=== PATIENT | female | born 1995 | race Caucasian/White ===

== ENCOUNTER 2024-04-05 14:38 | Emergency (ER) | payer OTHER ==
--- OUTSIDE RECORDS SUMMARY | 2024-04-05 14:41 | XMS REPORT | Continuity of Care Document ---
Author Name Unknown Address [address] [facility] [address]. [address] [place], [place] [id number] [place] [address] thconnect Address [address] [facility] [address]. [address] [place] [address] Care Team Providers Care Cruise Counselor Name Role Phone Unavailable Unavailable Unavailable Encounters Start Date/Time End Date/Time Encounter Type Admission Type Attending Clinicians Care Facility Care Department Encounter ID Source 2024-03-21 15:27:50 2024-03-21 15:27:50 Outpatient SFA SFA 1027 Cesar Wheeler 2024-03-16 08:25:08 2024-03-16 08:25:08 Outpatient SFA SFA 1022 Cesar Wheeler 2024-02-16 09:05:50 2024-02-16 09:05:50 Outpatient SFA SFA 0923 Cesar Wheeler 2024-02-15 15:06:41 2024-02-15 15:06:41 Outpatient SFA SFA 0922 Cesar Wheeler 2024-01-20 09:09:22 2024-01-20 09:09:22 Outpatient SFA SFA 0827 Cesar Wheeler 2024-01-19 08:30:39 2024-01-19 08:30:39 Outpatient SFA SFA 0826 Cesar Wheeler 2024-01-12 13:41:47 2024-01-12 13:41:47 Outpatient SFA SFA [id number] 0819 Cesar Wheeler 2024-01-05 10:58:32 2024-01-05 10:58:32 Outpatient SFA SFA 0812 Cesar Wheeler Results Test Description Test Time Test Comments Results Result Co mments Source VITAMIN D, 25 [id number] 03:48:48* Test Item Value Reference Range Interpretation Comme [facility] VITAMIN D, 25 OH (test code = 4958) 21 NG/ML SEE BELOW L NOTE: 25-HYDR OXYVITAMIN D ASSAY INCLUDES 25-HYDROXYVITAMIN D2 AND D3. INTERPRETIVE RANGES PEDIATRIC (<17 YEARS) . . . . . . . . . . . NG/ML 20-100ADULT: INSUFFICIENT . . . . . . . . . . . . . . NG/ML <20 SUBOPTIMAL . . . . . . . . . . . . . . . NG/ML 20-29 OPTIMAL . . . . . . . . . . . . . . . . . NG/ML 30-100 TSH, THIRD [id number] 03:47:06* Test Item Value Reference Range Interpretation Comme [facility] TSH, THIRD GENERATION (test code = 2821) 1.080 UIU/ML 0.400-4.100 COMPREHENSIVE METABOLIC [id number] 03:45:24* Test Item Value Reference Range Interpretation Comme [facility] GLUCOSE (test code = 2216) 84 MG/DL 70-99 BUN (test code = 2207) 12 MG/DL 6-20 CREATININE (test code = 2213) 0.79 MG/DL 0.60-1.30 eGFR (2020 CKD-EPI) (test code = 54774) 104 ML/MIN/1.73 >60 CALC BUN/CREAT (test code = 223) 15 RATIO 6-28 SODIUM (test code = 223) 134 MEQ/L 133-146 POTASSIUM (test code = 2228) 4.2 MEQ/L 3.5-5.4 CHLORIDE (test code = 2215) 98 MEQ/L 95-107 CARBON DIOXIDE (test code = 2206) 23 MEQ/L 19-31 CALCIUM (test code = 2209) 9.8 MG/DL 8.5-10.5 PROTEIN, TOTAL (test code = 2228) 7.0 G/DL 6.1-8.3 ALBUMIN (test code = 2200) 4.3 G/DL 3.5-5.2 CALC GLOBULIN (test code = 2240) 2.7 G/DL 1.9-3.7 CALC A/G RATIO (test code = 223) 1.6 RATIO 1.0-2.6 BILIRUBIN, TOTAL (test code = 2207) 0.5 MG/DL <=1.2 ALKALINE PHOSPHATASE (test code = 2204) 89 U/L 40-112 AST (test code = 2218) 21 U/L 9-40 ALT (test code = 2219) 20 U/L 5-40 LIPID [id number] 03:45:24* Test Item Value Reference Range Interpretation Comme nts CHOLESTEROL (test code = 2210) 260 MG/DL <200 H TRIGLYCERIDES (test code = 2232) 181 MG/DL <150 H HDL CHOLESTEROL (test code = 2220) 35 MG/DL >39 L CALC LDL CHOL (test code = 2237) 190 MG/DL <100 H NOTE: CALCULATED LDL IS BASED ON ANGELA-SRIVASTAVA METHOD WHICHINCLUDES ADJUSTABLE TRIGLYCERIDE:VLDL CHOLESTEROL RATIO.THIS FACTOR VARIES BY MEASURED TRIGLYCERIDE AND NON-HDLCHOLESTEROL CONCENTRATIONS WITH INCREASED CALCULATED LDL SEENIN HIGHER TRIGLYCERIDE OR LOWER NON-HDL SPECIMENS. FOR MOREINFORMATION, SEE CLIENT ANNOUNCEMENT AT [email or web address] RISK RATIO LDL/HDL (test code = 2238) 5.43 RATIO <3.22 H UNLESS OTHERW ISE INDICATED, ALL TESTING PERFORMED AT [facility] [address] [place] [address] CLAMP JIG ASSEMBLER: SANTHOSH ARREOLA M.D. CLIA NUMBER [id number] [facility] [place]. [id number] CBC W/AUTO DIFF WITH [id number] 02:51:33* Test Item Value Reference Range Interpretation Comme nts WBC (test code = 1001) 6.4 K/UL 3.5-11.0 RBC (test code = 1002) 4.98 M/UL 3.80-5.40 HEMOGLOBIN (test code = 1003) 14.2 G/DL 11.5-15.5 HEMATOCRIT (test code = 1004) 42.4 % 34.0-45.0 MCV (test code = 1005) 85.1 fL 80.0-99.0 MCH (test code = 1006) 28.5 PG 25.0-33.0 MCHC (test code = 1007) 33.5 G/DL 31.0-36.0 RDW (test code = 1038) 12.8 % 11.5-15.0 NEUTROPHILS (test code = 1008) 72.4 % LYMPHOCYTES (test code = 1010) 18.9 % MONOCYTES (test code = 1011) 6.5 % EOSINOPHILS (test code = 1012) 1.4 % BASOPHILS (test code = 1013) 0.5 % IMMATURE GRANULOCYTES (test code = 1036) 0.3 % NUCLEATED RBCS (test code = 1065) 0.0 /100 WBC'S See_Comment [Automated [employer] ge] The system which generated this result transmitted reference range: 0.0. The reference range was not used to interpret this result as normal/abnormal. PLATELET COUNT (test code = 1015) 320 K/UL 130-400 ABSOLUTE NEUTROPHILS (test code = 1066) 4.66 K/UL 1.50-7.50 ABSOLUTE LYMPHOCYTES (test code = 1067) 1.22 K/UL 1.00-4.00 ABSOLUTE MONOCYTES (test code = 1068) 0.42 K/UL 0.20-1.00 ABSOLUTE EOSINOPHILS (test code = 1040) 0.09 K/UL 0.00-0.50 ABSOLUTE BASOPHILS (test code = 1069) 0.03 K/UL 0.00-0.20 ABS IMMATURE GRANULOCYTES (test code = 1020) 0.02 K/UL 0.00-0.10 ABS NUCLEATED RBCS (test code = 93351) 0.00 K/UL 0.00-0.11
[2024-04-05 15:46] LABS: Hematocrit 41.5 % (36.0-45.0); Hemoglobin 13.9 g/dL (12.0-15.0); MCH 28.3 pg (27.0-35.0); MCHC 33.4 g/dL (32.0-36.0); MCV 84.7 fL (80-100); MPV 8.4 fL (7.6-11.3); Platelets 238 thou/uL (152-406); RBC Red Blood Cell Count 4.91 M/uL (3.86-4.86); Red Cell Distribution Width 14.1 % (12.1-15.2)
[2024-04-05 15:48] LABS: Specific Gravity 1.023 (1.005-1.030); Sqamous Epithelial None Seen /HPF (None Seen); Urine Bacteria <20 /HPF (<20); Urine Bilirubin NEGATIVE (Negative); Urine Blood Negative (Negative); Urine Clarity Extremely Turbid (Clear); Urine Color Yellow (Yellow); Urine Crystals Unidentified Few /HPF (None Seen); Urine Culture Reflex Order REFLEXED; Urine Glucose NEGATIVE (Negative); Urine Ketones NEGATIVE (Negative); Urine Micro Reflex YN NO BILL MICROSCOPIC; Urine Mucus 2+ /HPF (None Seen); Urine Nitrite NEGATIVE (Negative); Urine Protein TRACE (Negative); Urine RBC <5 /HPF (None Seen); Urine Urobilinogen Normal (Normal); Urine WBC Clump Occasional /HPF (None Seen); Urine Yeast (Budding) Moderate /HPF (None Seen)
[2024-04-05 15:54] LABS: Barbiturates NEGATIVE (NEGATIVE); Benzodiazepines NEGATIVE (NEGATIVE); Cocaine NEGATIVE (NEGATIVE); METHAMPHETAM NEGATIVE (NEGATIVE); Methadone NEGATIVE (NEGATIVE); Opiates NEGATIVE (NEGATIVE); Phencyclidine NEGATIVE (NEGATIVE); THC Cannibis NEGATIVE (NEGATIVE)
[2024-04-05 15:57] LABS: Anion Gap 8.5 mEq/L (5.0-15.0); Potassium 3.5 mEq/L (3.5-5.1)
--- NOTE | 2024-04-05 16:23 | RAD REPORT ---
EXAM: CT Head Brain Wo Cont HISTORY: HEADACHE COMPARISON: None TECHNIQUE: Multiple contiguous axial images were obtained for a CT of the brain without contrast. Sag ittal and coronal reformats were performed. One or more of the following dose reduction techniques were used: Automated exposure control, adjus tment of the mA and kV according to patient size, and iterative reconstruction. Unless otherwise specified, incidental findings do not require dedicated imaging follow-up. FINDINGS: No evidence of hydrocephalus, intracranial hemorrhage, or extra-axial fluid collection. Mild brain atrophy with mild periventricular and deep white matter chronic microvascular ischemic ch anges present. The calvarium is intact. The visualized paranasal sinuses and mastoid air cells are essentially clear . IMPRESSION: No evidence of acute intracranial abnormality.
--- NOTE | 2024-04-05 16:27 | ER ---
Nurse's Notes [facility] Name: Tayla Silva Age: 29 yrs Sex: Female : 1995 Arrival Date: 04/05/2024 Time: 14:38 Bed 20 Private MD: Diagnosis: UTI/ Urinary tract infection, site not specified Presentation: 04/05 14:54 Chief complaint: Patient states: N/V and decreased appetite that began 2-3 days ago. PT ss reports she is taking Semaglutide and it may be because of that, but today, approximately 30 minutes ago, began to experience blurry vision and fatigue. Coronavirus screen: Client denies travel out of the [place] in the last 14 days. Ebola Screen: Patient denies exposure to infectious person. Patient denies travel to an Ebola-affected area in the 21 days before illness onset. Initial Sepsis Screen: Does the patient meet any 2 criteria? No. Patient's initial sepsis screen is negative. Does the patient have a suspected source of infection? No. Patient's initial sepsis screen is negative. Risk Assessment: Do you want to hurt yourself or someone else? Patient reports no desire to harm self or others. 14:54 Method Of Arrival: Ambulatory ss 14:54 Acuity: LAURA 3 ss 15:00 Onset of symptoms is unknown. bp Triage Assessment: 15:00 General: Appears in no apparent distress. comfortable, obese, Behavior is cooperative, bp appropriate for age, anxious. Pain: Denies pain. EENT: No deficits noted. Neuro: Level of Consciousness is awake, alert, obeys commands, Oriented to Appropriate for age. Cardiovascular: Rhythm is sinus rhythm. Respiratory: No deficits noted. GI: No signs and/or symptoms were reported involving the gastrointestinal system. : No signs and/or symptoms were reported regarding the genitourinary system. Derm: No deficits noted. Musculoskeletal: No deficits noted. 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 - Infectious Disease History:: Denies. - Social history:: Smoking status: Reported history of juuling and/or vaping. Screenin:[facility] ED Fall Risk Assessment (Adult) History of falling in the last 3 months, bp including since admission No falls in past 3 months (0 pts) Confusion or Disorientation No (0 pts) Intoxicated or Sedated No (0 pts) Impaired Gait No (0 pts) Mobility Assist Device Used No (0 pt) Altered Elimination No (0 pt) Score/Fall Risk Level 0 - 2 = Low Risk Oriented to surroundings. Abuse screen: Denies threats or abuse. Denies injuries from another. Nutritional screening: No deficits noted. Tuberculosis screening: No symptoms or risk factors identified. Assessment: 15:01 Reassessment: Dr. Fam states no to code stroke at this time. ss 16:38 Reassessment: Patient appears in no apparent distress at this time. Patient is alert, bp oriented x 3, equal unlabored respirations, skin warm/dry/pink. Patient states symptoms have improved. Vital Signs: 14:54 BP 127 / 84; Pulse 86; Resp 14; Temp 98.8(O); Pulse Ox 100% on R/A; Weight 79.38 kg; ss Height 5 ft. 5 in. ; Pain 0/10; 16:38 BP 125 / 75; Pulse 81; Resp 16; Pulse Ox 100% ; bp 14:54 Body Mass Index 29.12 (79.38 kg, 165.1 cm) ss 14:54 Pain Scale: Adult ss ED Course: 14:41 Patient arrived in ED. im 14:45 Deya Fam MD is Attending Physician. gb1 14:55 Triage completed. ss 14:57 Arm band placed on right wrist. ss 15:12 CT Head Brain wo Cont In Process Unspecified. EDMS 15:26 Amando Eastman, RN is Primary Nurse. bp 15:36 Initial lab(s) drawn, by me, sent to lab. Inserted saline lock: 22 gauge in right bp antecubital area, using aseptic technique. Blood collected. Flushed with 10 mL NS. 16:38 Patient has correct armband on for positive identification. Provided Education on: N/A. bp 16:38 No provider procedures requiring assistance completed. IV discontinued, intact, bp bleeding controlled, No redness/swelling at site. Pressure dressing applied. Administered Medications: No medications were administered Medication: 16:38 VIS not applicable for this client. bp Outcome: 16:26 Discharge ordered by . gbAkilah 16:38 Discharged to home ambulatory, bp 16:38 Condition: stable 16:38 Discharge instructions given to patient, Instructed on discharge instructions, follow up and referral plans. medication usage, Demonstrated understanding of instructions, follow-up care, medications, Prescriptions given X 1, 16:40 Patient left the ED. bp Signatures: Dispatcher [employer] EDMS Ethel Boland, MADELEINE RN Amando Eastman RN RN Nancy Yuen Gina, MD MD gb1
--- NOTE | 2024-04-05 16:27 | EDPHYS ---
Physician Documentation [facility] Name: Tayla Silva Age: 29 yrs Sex: Female : 1995 Arrival Date: 04/05/2024 Time: 14:38 Bed 20 Private MD: ED Physician Deya Fam HPI: 04/05 16:17 This 29 yrs old Female presents to ER via Ambulatory with complaints of gb1 Doesn't Feel Right, Blurred Vision. 16:17 29-year-old female states that she had blurry vision and just does not feel right". She gb1 just recently started taking gabapentin for anxiety and is currently taking Abilify for mood disturbances. She denies any illicit drug use or any dizziness that could cause her to pass out she denies any vaginal bleeding or other signs and symptoms of chest pain or shortness of breath.. 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 - Infectious Disease History:: Denies. - Social history:: Smoking status: Reported history of juuling and/or vaping. Exam: 16:17 Constitutional: This is a well developed, well nourished patient who is awake, alert, gb1 and in no acute distress. Head/Face: Normocephalic, atraumatic. Eyes: Pupils equal round and reactive to light, extra-ocular motions intact. Lids and lashes normal. Conjunctiva and sclera are non-icteric and not injected. Cornea within normal limits. Periorbital areas with no swelling, redness, or edema. ENT: Nares patent. No nasal discharge, no septal abnormalities noted. Tympanic membranes are normal and external auditory canals are clear. Oropharynx with no redness, swelling, or masses, exudates, or evidence of obstruction, uvula midline. Mucous membranes moist. Neck: Trachea midline, no thyromegaly or masses palpated, and no cervical lymphadenopathy. Supple, full range of motion without nuchal rigidity, or vertebral point tenderness. No Meningismus. Chest/axilla: Normal chest wall appearance and motion. Nontender with no deformity. No lesions are appreciated. Cardiovascular: Regular rate and rhythm with a normal S1 and S2. No gallops, murmurs, or rubs. Normal PMI, no JVD. No pulse deficits. Respiratory: Lungs have equal breath sounds bilaterally, clear to auscultation and percussion. No rales, rhonchi or wheezes noted. No increased work of breathing, no retractions or nasal flaring. Abdomen/GI: Soft, non-tender, with normal bowel sounds. No distension or tympany. No guarding or rebound. No evidence of tenderness throughout. Skin: Warm, dry with normal turgor. Normal color with no rashes, no lesions, and no evidence of cellulitis. MS/ Extremity: Pulses equal, no cyanosis. Neurovascular intact. Full, normal range of motion. Neuro: Awake and alert, GCS 15, oriented to person, place, time, and situation. Cranial nerves II-XII grossly intact. Motor strength 5/5 in all extremities. Sensory grossly intact. Cerebellar exam normal. Normal gait. Vital Signs: 14:54 BP 127 / 84; Pulse 86; Resp 14; Temp 98.8(O); Pulse Ox 100% on R/A; Weight 79.38 kg; ss Height 5 ft. 5 in. ; Pain 0/10; 16:38 BP 125 / 75; Pulse 81; Resp 16; Pulse Ox 100% ; bp 14:54 Body Mass Index 29.12 (79.38 kg, 165.1 cm) ss 14:54 Pain Scale: Adult ss MDM: 14:53 Medical Screening Exam initiated gb1 16:17 ED course: 29-year-old female with visual disturbances CT of the head appears to be gb1 within normal limits no acute intracranial findings. Lab work to include UDS, electrolytes and CBC are all within normal limits. This is likely secondary to the start of the gabapentin. I recommend the medication reconciliation with her primary care doctor to which she is compliant with her discharge home today.. 04/05 15:02 Order name: CBC w/o diff; Complete Time: 15:58 gb1 04/05 15:02 Order name: BMP; Complete Time: 15:58 gb1 04/05 15:02 Order name: UAM; Complete Time: 15:58 gb1 04/05 15:02 Order name: UDS; Complete Time: 15:58 gb1 04/05 15:51 Order name: Urine Culture EDMS 04/05 15:02 Order name: CT Head Brain wo Cont; Complete Time: 16:25 gb1 Administered Medications: No medications were administered Disposition Summary: 04/05/24 16:26 Discharge Ordered Notes: Location: Home gb1 Condition: Stable gb1 Diagnosis - UTI/ Urinary tract infection, site not specified gb1 Followup: gb1 - With: Private Physician - When: - Reason: If symptoms return, Recheck today's complaints Discharge Instructions: - Discharge Summary Sheet gb1 - Urinary Tract Infection, Adult, [id number] gb1 Forms: - Medication Reconciliation Form gb1 - Antibiotic Education gb1 - Prescription Opioid Use gb1 - Patient Portal Instructions gb1 - Leadership Thank You Letter gb1 Prescriptions: - Cipro 500 mg Oral Tablet - take 1 tablet ORAL route every 12 hours for 7 days; 14 tablet; Refills: 0, gb1 Product Selection Permitted Signatures: Dispatcher [employer] EDMS Ethel Boland, RN RN ss Deya Fam MD MD gb1 Corrections: (The following items were deleted from the chart) 15:03 15:03 CBC without Diff+H.LAB.BRZ ordered. EDMS EDMS 15:03 15:03 BASIC METABOLIC PANEL+C.LAB.BRZ ordered. EDMS EDMS 15:03 15:03 Urinalysis W/Microscopic+U.LAB.BRZ ordered. EDMS EDMS 15:03 15:03 URINE DRUG SCREEN+UC.LAB.BRZ ordered. EDMS EDMS 15:59 15:59 Test, Urine+UC.LAB.BRZ ordered. EDMS EDMS
[2024-04-05 17:07] VITALS: TEMP 98.8; O2SAT 100
[2024-04-05 17:08] VITALS: BP 125/75
== END 2024-04-05 16:40 | disposition home or self-care (01) ==
LOC: ER 14:38
DX: N39.0 Urinary tract infection, site not specified (principal); F32.A Depression, unspecified; Z28.310 Unvaccinated for COVID-19
CPT/HCPCS: 36415; 70450; 80048; 80307; 81001; 85027; 87086; 87088; 99284

== ENCOUNTER 2024-05-15 13:59 | Emergency (ER) | payer OTHER ==
--- OUTSIDE RECORDS SUMMARY | 2024-05-15 14:02 | XMS REPORT | Continuity of Care Document ---
Author Name Unknown Address 1200 [facility]. [address] [place] [address] [facility] thconnect Address 1200 [facility] [address] [place] [address] Care Team Providers Care Squeak Rattle And Leak Repairer Name Role Phone SUSAN SOL Attending Clinician Unavailable Problems Condition Name Condition Details Condition Category Status Onset Date Resolution Date Last Treatment Date Treating Clinician Comments Source Generalize d anxiety disorder Generalize d Anxiety Disorder Problem Active 2023-05 00:00: 00 [facility] Mild hyperemesi s gravidarum Mild Hyperemesi s Gravidarum Problem Active 2023-05 00:00: 00 [facility] Problem Active 2023-05 00:00: 00 [facility] Past history of section Past History of Section Problem Active 2023-05 00:00: 00 [facility] Polycystic ovary syndrome Polycystic Ovary Syndrome Problem Active 2023-05 00:00: 00 [facility] High risk due to recurrent loss High Risk Due to Recurrent Loss Problem Active 2023-05 00:00: 00 [facility] Social History Smoking Status Start Date Stop Date Source Never Smoker [facility] Medications Ordered Medication Name Filled Medication Name Start Date Stop Date Current Medication? Ordering Clinician Indication Dosage Frequency Signature (SIG) Comments Components Source folic acid 1 mg tablet Take 1 tablet every day by oral route for 30 days. folic acid 1 mg tablet Take 1 tablet every day by oral route for 30 days. No 1 Q1D folic acid 1 mg tablet Take 1 tablet every day by oral route for 30 days. [facility] ondansetron 4 mg disintegrat ing tablet ondansetron 4 mg disintegrat ing tablet No ondansetro n 4 mg disintegra ting tablet [facility] ondansetron 8 mg disintegrat ing tablet Place 1 tablet every 8 hours by translingua l route as needed. ondansetron 8 [address] tablet Place 1 tablet every 8 hours by translingua l route as needed. No 1 Q8H ondansetro n 8 mg [address] ting tablet Place 1 tablet every 8 hours by translingu al route as needed. [facility] Vital Signs Vital Name Observation Time Observation Value Comments S ource BMI (Body Mass Index) 2024-05-13 00:00:00 28.4 kg/m2 [facility] BP Systolic 2024-05-13 00:00:00 112 mm[Hg] [facility] Body Weight 2024-05-13 00:00:00 170.7 [lb_av] [facility] [facility] Height 2024-05-13 00:00:00 65 [facility]in_i[facility] BP Diastolic 2024-05-13 00:00:00 80 mm[Hg] [facility] Procedures Procedure Date / Time Performed Performing Clinicia n Source US, obstetric, limited 2024-05-13 00:00:00 [facility] Section 2016-10-01 00:00:00 [facility] Encounters Start Date/Time End Date/Time Encounter Type Admission Type Attending Clinicians Care Facility Care Department Encounter ID Source 2024-05-13 11:27:00 2024-05-13 11:27:00 Outpatient SUSAN [facility] [id number] [facility] 2024-05-13 00:00:00 2024-05-13 00:00:00 HEENA Lundberg-BC: [address], [address], [place] [address] , Ph. [phone] G [facility] [id number] 1219 [facility] 2024-04-28 13:54:22 2024-04-28 13:54:22 Outpatient SFA SFA 1204 Cesar hWeeler 2024-03-21 15:27:50 2024-03-21 15:27:50 Outpatient [facility] 1027 Cesar Wheeler 2024-03-16 08:25:08 2024-03-16 08:25:08 Outpatient [facility] 1022 Cesar Wheeler 2024-02-16 09:05:50 2024-02-16 09:05:50 Outpatient [facility] [id number] Cesar Wheeler 2024-02-15 15:06:41 2024-02-15 15:06:41 Outpatient [facility] 09 Cesar Wheeler 2024-01-20 09:09:22 2024-01-20 09:09:22 Outpatient [facility] [id number] Cesar Wheeler 2024-01-19 08:30:39 2024-01-19 08:30:39 Outpatient [facility] [id number] Cesar Wheeler 2024-01-12 13:41:47 2024-01-12 13:41:47 Outpatient [facility] [id number] Cesar Wheeler 2024-01-05 10:58:32 2024-01-05 10:58:32 Outpatient [facility] [id number] Cesar Wheeler Results Test Description Test Time Test Comments Results Result Co mments Source VITAMIN D, 25 [id number] 03:48:48* Test Item Value Reference Range Interpretation Comme [facility] VITAMIN D, 25 OH (test code [...] . . . NG/ML 30-100 TSH, THIRD [id number] 03:47:06* Test Item Value Reference Range Interpretation Comme [facility] TSH, THIRD GENERATION (test code = 282) 1.080 UIU/ML 0.400-4.100 COMPREHENSIVE METABOLIC [id number] 03:45:24* Test Item Value Reference Range Interpretation Comme nts GLUCOSE (test code = 2216) 84 MG/DL 70-99 BUN (test code = 2207) 12 MG/DL 6-20 CREATININE (test code = 2213) 0.79 MG/DL 0.60-1.30 eGFR (2020 CKD-EPI) (test code = ) 104 ML/MIN/1.73 >60 CALC BUN/CREAT (test code = 2234) 15 RATIO 6-28 SODIUM (test code = 2230) 134 MEQ/L 133-146 POTASSIUM (test code = 2227) 4.2 MEQ/L 3.5-5.4 CHLORIDE (test code = 2214) 98 MEQ/L 95-107 CARBON DIOXIDE (test code = 2205) 23 MEQ/L 19-31 CALCIUM (test code = 2208) 9.8 MG/DL 8.5-10.5 PROTEIN, TOTAL (test code = 2228) 7.0 G/DL 6.1-8.3 ALBUMIN (test code = 2200) 4.3 G/DL 3.5-5.2 CALC GLOBULIN (test code = 2239) 2.7 G/DL 1.9-3.7 CALC A/G RATIO (test code = 2233) 1.6 RATIO 1.0-2.6 BILIRUBIN, TOTAL (test code = 2206) 0.5 MG/DL <=1.2 ALKALINE PHOSPHATASE (test code = 2203) 89 U/L 40-112 AST (test code = 2217) 21 U/L 9-40 ALT (test code = 2218) 20 U/L 5-40 LIPID [id number] 03:45:24* Test Item Value Reference Range Interpretation Comme nts CHOLESTEROL (test code = 2209) 260 MG/DL <200 H TRIGLYCERIDES (test code = 2231) 181 MG/DL <150 H HDL CHOLESTEROL (test code = 2219) 35 MG/DL >39 L CALC LDL CHOL (test code = 2236) 190 MG/DL <100 H NOTE: CALCULATED LDL IS BASED ON ANGELA-SRIVASTAVA METHOD WHICHINCLUDES ADJUSTABLE TRIGLYCERIDE:VLDL CHOLESTEROL RATIO.THIS FACTOR VARIES BY MEASURED TRIGLYCERIDE AND NON-HDLCHOLESTEROL CONCENTRATIONS WITH INCREASED CALCULATED LDL SEENIN HIGHER TRIGLYCERIDE OR LOWER NON-HDL SPECIMENS. FOR MOREINFORMATION, SEE CLIENT ANNOUNCEMENT AT [email or web address] /CalcLDL-C RISK RATIO LDL/HDL (test code = 2238) 5.43 RATIO <3.22 H UNLESS OTHERW ISE INDICATED, ALL TESTING PERFORMED AT [facility] [address] [place] [address] PATIENT FINANCIAL SPECIALIST: SANHTOSH ARREOLA M.D. [place] NUMBER [id number] [facility] [place]. [id number] CBC W/AUTO DIFF WITH [id number] 02:51:33* Test Item Value Reference Range Interpretation [...] = 1065) 0.0 /100 WBC'S See_Comment [Automated [employer] ge] The system which generated this result [...] 0.00-0.10 ABS NUCLEATED RBCS (test code = 58984) 0.00 K/UL 0.00-0.11
[2024-05-15] MEDS ORDERED: NA CHLORIDE 0.9% 1,000 ML ONE (14:48)
[2024-05-15] MEDS ORDERED: ONDANSETRON 4 MG/2 ML VIAL ONE (14:48)
[2024-05-15] MEDS ORDERED: ACETAMINOPHEN 325 MG TABLET ONE (14:48)
--- NOTE | 2024-05-15 15:21 | RAD REPORT ---
EXAM: Transvaginal OB HISTORY: ABD CRAMPING, COMPARISON: None TECHNIQUE: Multiple grayscale and color Doppler images were obtained in a transabdominal pelvic ultra sound. Spectral analysis of the Doppler waveforms of the ovaries were performed. FINDINGS: UTERUS: There is an intrauterine gestational sac. pole present. Kila-rump length: 5.1 cm which estimates gestational age at 11 week 1 day. A heart rate is detected at 154 bpm. No evidence of subchorionic hemorrhage. No free fluid is seen in the pelvis. RIGHT OVARY: Normal flow without focal mass. LEFT OVARY: Normal flow without focal mass. IMPRESSION: Single live intrauterine with estimated age of 11 week 1 day with ALEXANDER of 025.
[2024-05-15 15:27] LABS: Specific Gravity 1.025 (1.005-1.030)
[2024-05-15 15:28] LABS: Specific Gravity 1.025 (1.005-1.030); Urine Bacteria <20 /HPF (<20); Urine Bilirubin NEGATIVE (Negative); Urine Blood 3+ (OVER) (Negative); Urine Clarity Extremely Turbid (Clear); Urine Color Light-Orange (Yellow); Urine Crystals Unidentified Many /HPF (None Seen); Urine Culture Reflex Order REFLEXED; Urine Glucose NEGATIVE (Negative); Urine Ketones 1+ (Negative); Urine Microscopic Reflex YN ORDER UMIC; Urine Mucus 3+ /HPF (None Seen); Urine Nitrite NEGATIVE (Negative); Urine Protein 1+ (Negative); Urine RBC >50 /HPF (None Seen); Urine Urobilinogen 1+ (Normal); Urine WBC >50 /HPF (<5); Urine WBC Clump Occasional /HPF (None Seen); Urine Yeast (Budding) Occasional /HPF (None Seen)
[2024-05-15 15:31] LABS: Absolute Lymphocytes (CBC) 0.7 K/uL (0.7-4.9); Absolute Monocytes 0.3 K/uL (0.1-1.3); Basophils % 0.5 % (0-1.3); Eosinophils % 0.5 % (0-4.4); Hemoglobin 13.3 g/dL (12.0-15.0); Lymphocytes % 12.4 % (15.3-44.8); MCH 28.4 pg (27.0-35.0); MCHC 33.3 g/dL (32.0-36.0); MCV 85.3 fL (80-100); MPV 9.4 fL (7.6-11.3); Monocytes % 4.2 % (3.3-12.3); Neutrophils % 82.4 % (41.7-73.7); Platelets 220 thou/uL (152-406); RBC Red Blood Cell Count 4.68 M/uL (3.86-4.86); Red Cell Distribution Width 12.7 % (12.1-15.2)
[2024-05-15 15:45] LABS: Anion Gap 10.4 mEq/L (5.0-15.0); Potassium 3.4 mEq/L (3.5-5.1)
[2024-05-15] MEDS ORDERED: CEFTRIAXONE 1000 MG/VIAL ONE (16:14)
--- NOTE | 2024-05-15 16:45 | EDPHYS ---
Physician Documentation [facility] Name: Tayla Silva Age: 29 yrs Sex: Female : 1995 Arrival Date: 05/15/2024 Time: 13:59 Bed 15 Private MD: ED Physician Mason Gutierrez HPI: 05/15 15:24 This 29 yrs old Female presents to ER via Ambulatory with complaints of Abdominal sb4 pain/cramping, + Preg <12wks. 15:24 The patient presents to the emergency department with abdominal pain, of the suprapubic sb4 area, that started this morning. The estimated gestational age is 12 weeks. course: care: private OB physician, the patient's last check was May 13, 2024, Ultrasound: the patient had an ultrasound, which was normal. 15:28 abdominal pain began this morning. also reports pain and burning with urination. no sb4 vaginal bleeding. 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 - Infectious Disease History:: Denies. - Social history:: Smoking status: Patient denies any tobacco usage or history of. ROS: 15:30 Constitutional: Negative for fever, chills, and weight loss, sb4 15:30 Abdomen/GI: Positive for abdominal pain, 15:30 : Positive for urinary symptoms, pelvic pain, burning with urination, 15:30 All other systems are negative, Exam: 15:30 Head/Face: Normocephalic, atraumatic. Eyes: Extra-ocular motions intact. Periorbital sb4 areas with no swelling, redness, or edema. ENT: Mucous membranes moist. Cardiovascular: Regular rate and rhythm with a normal S1 and S2. Respiratory: No increased work of breathing, no retractions or nasal flaring. Abdomen/GI: Soft, non-tender, no distension. Skin: Warm, dry with normal turgor. Normal color with no rashes, no lesions, and no evidence of cellulitis. 15:30 Constitutional: The patient appears alert, awake, uncomfortable, Vital Signs: 14:35 BP 132 / 88; Pulse 98; Resp 16; Temp 98.1; Pulse Ox 98% on R/A; Pain 10/10; iw 14:37 Weight 77.11 kg; Height 5 ft. 5 in. ; iw 15:30 BP 127 / 81; Pulse 88; Resp 17; Pulse Ox 99% on R/A; rs5 17:10 BP 131 / 79; Pulse 84; Resp 17; Pulse Ox 99% on R/A; rs5 14:37 Body Mass Index 28.29 (77.11 kg, 165.1 cm) iw 14:35 Pain Scale: Adult iw MDM: 14:24 Medical Screening Exam initiated sb4 16:44 Data reviewed: vital signs, nurses notes, lab test result(s), and as a result, I will sb4 discharge patient. Counseling: I had a detailed discussion with the patient and/or guardian regarding the historical points, exam findings, and any diagnostic results supporting the discharge/admit diagnosis, lab results, the need for outpatient follow up, an OB/Gyne specialist, to return to the emergency department if symptoms worsen or persist or if there are any questions or concerns that arise at home. 05/15 14:44 Order name: Basic Metabolic Panel; Complete Time: 15:59 sb4 05/15 14:44 Order name: CBC with Diff; Complete Time: 15:59 sb4 05/15 14:44 Order name: Test, Urine; Complete Time: 15:28 sb4 05/15 14:44 Order name: Quantitative Hcg; Complete Time: 15:59 sb4 05/15 14:44 Order name: Urinalysis w/ reflexes; Complete Time: 15:29 sb4 05/15 15:31 Order name: Urine Culture EDMS 05/15 14:45 Order name: US Transvaginal Ob; Complete Time: 15:22 sb4 05/15 14:45 Order name: IV Saline Lock; Complete Time: 15:27 sb4 05/15 14:45 Order name: Labs collected and sent; Complete Time: 15:27 sb4 Administered Medications: 15:10 Drug: NS 0.9% IV 1000 ml IV at 1 bolus Per protocol; to be given as a bolus over 60 rs5 minutes Route: IV; Rate: 1 bolus; Site: right antecubital; 16:07 Follow up: Response: No adverse reaction; IV Status: Completed infusion; IV Intake: rs5 999ml 15:10 Drug: Ondansetron IVP 4 mg IVP once; over 2 minutes Route: IVP; Site: right antecubital;rs5 15:30 Follow up: Response: No adverse reaction; Nausea is decreased rs5 15:10 Drug: Acetaminophen PO 650 mg PO once Route: PO; rs5 16:12 Follow up: Response: No adverse reaction; Pain is decreased rs5 16:10 Drug: Rocephin IV 1 grams IV at calculated rate once; Given slow IV push per pharmacy rs5 instructions Route: IV; Rate: calculated rate; Site: right antecubital; 16:40 Follow up: Response: No adverse reaction; IV Status: Completed infusion; IV Intake: [id number] Disposition Summary: 05/15/24 16:44 Discharge Ordered Notes: Location: Home sb4 Problem: new sb4 Symptoms: have improved sb4 Condition: Stable sb4 Diagnosis - UTI/ Urinary tract infection, site not specified sb4 - 11 weeks gestation of sb4 Followup: sb4 - With: Emergency Department - When: As needed - Reason: Fever > 102 F, Worsening of condition Discharge Instructions: - Discharge Summary Sheet sb4 - and Urinary Tract Infection sb4 Forms: - Antibiotic Education sb4 - Patient Portal Instructions sb4 - Leadership Thank You Letter sb4 Prescriptions: - Macrobid 100 mg Oral capsule - take 1 capsule ORAL route every 12 hours for 7 days; 14 capsule; Refills: 0, sb4 Product Selection Permitted Addendum: 05/20/2024 12:47 Co-signature as Attending Physician, Mason Gutierrez MD I agree with the assessment and c gayle plan of care. Signatures: Dispatcher [employer] Mason Tsai MD MD cha Williams, Irene RN Janett Hopkins PA-C PAJulia sb4 Tarik Rodriguez RN RN rs5 Corrections: (The following items were deleted from the chart) 05/15 15:29 15:24 course: care: private OB physician, the patient's last check sb4 was May 13, 2024, Ultrasound: the patient had an ultrasound, which was normal, sb4 15:29 15:28 abdominal pain began this morning. also reports pain and burning with urination. sb4 sb4
--- NOTE | 2024-05-15 16:45 | ER ---
Nurse's Notes [facility] Name: Tayla Silva Age: 29 yrs Sex: Female : 1995 Arrival Date: 05/15/2024 Time: 13:59 Bed 15 Private MD: Diagnosis: UTI/ Urinary tract infection, site not specified;11 weeks gestation of Presentation: 05/15 14:33 Chief complaint: Patient states: vaginal bleeding and cramping today, is approx 12 iw weeks . Coronavirus screen: At this time, the client does not indicate any symptoms associated with coronavirus-19. Ebola Screen: No symptoms or risks identified at this time. Initial Sepsis Screen: Does the patient meet any 2 criteria? No. Patient's initial sepsis screen is negative. Does the patient have a suspected source of infection? No. Patient's initial sepsis screen is negative. Risk Assessment: Do you want to hurt yourself or someone else? Patient reports no desire to harm self or others. Onset of symptoms was May 15, 2024. 14:33 Method Of Arrival: Ambulatory iw 14:33 Acuity: LAURA 3 iw 14:35 Note is a pt at [facility] with Dr. Thorpe. 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 - Infectious Disease History:: Denies. - Social history:: Smoking status: Patient denies any tobacco usage or history of. Screenin:30 [facility] ED Fall Risk Assessment (Adult) History of falling in the last 3 months, rs5 including since admission No falls in past 3 months (0 pts) Confusion or Disorientation No (0 pts) Intoxicated or Sedated No (0 pts) Impaired Gait No (0 pts) Mobility Assist Device Used No (0 pt) Altered Elimination No (0 pt) Score/Fall Risk Level 0 - 2 = Low Risk Oriented to surroundings, Maintained a safe environment. Abuse screen: Denies threats or abuse. Nutritional screening: No deficits noted. Tuberculosis screening: No symptoms or risk factors identified. Assessment: 14:30 General: Appears in no apparent distress. uncomfortable, Behavior is calm, cooperative. rs5 Pain: Complains of pain in suprapubic area Pain currently is 3 out of 10 on a pain scale. Quality of pain is described as crampy, Is intermittent. Neuro: Level of Consciousness is awake, alert, obeys commands, Oriented to person, place, time, situation. Cardiovascular: Patient's skin is warm and dry. Respiratory: Airway is patent Respiratory effort is even, unlabored, Respiratory pattern is regular, symmetrical. GI: Abdomen is round non-distended, Abd is soft and non tender X 4 quads. Reports nausea. : Reports vaginal bleeding that is. EENT: No signs and/or symptoms were reported regarding the EENT system. Derm: Skin is intact, Skin is pink, warm \T\ dry. Musculoskeletal: Range of motion: intact in all extremities. 15:29 Reassessment: Patient and/or family updated on plan of care and expected duration. Pain rs5 level reassessed. Patient is alert, oriented x 3, equal unlabored respirations, skin warm/dry/pink. 16:44 Reassessment: Patient and/or family updated on plan of care and expected duration. Pain rs5 level reassessed. Patient is alert, oriented x 3, equal unlabored respirations, skin warm/dry/pink. 17:10 Reassessment: Patient and/or family updated on plan of care and expected duration. Pain rs5 level reassessed. Patient is alert, oriented x 3, equal unlabored respirations, skin warm/dry/pink. Vital Signs: 14:35 BP 132 / 88; Pulse 98; Resp 16; Temp 98.1; Pulse Ox 98% on R/A; Pain 10/10; iw 14:37 Weight 77.11 kg; Height 5 ft. 5 in. ; iw 15:30 BP 127 / 81; Pulse 88; Resp 17; Pulse Ox 99% on R/A; rs5 17:10 BP 131 / 79; Pulse 84; Resp 17; Pulse Ox 99% on R/A; rs5 14:37 Body Mass Index 28.29 (77.11 kg, 165.1 cm) iw 14:35 Pain Scale: Adult iw ED Course: 14:01 Patient arrived in ED. ra3 14:04 Janett Gustafson PA-C is PHCP. sb4 14:04 Mason Gutierrez MD is Attending Physician. sb4 14:30 Tarik Rodriguez, MADELEINE is Primary Nurse. rs5 14:30 Patient has correct armband on for positive identification. Placed in gown. Bed in low rs5 position. Call light in reach. Side rails up X2. 14:30 No provider procedures requiring assistance completed. rs5 14:34 Triage completed. iw 14:36 Arm band placed on. iw 15:00 Inserted saline lock: 20 gauge in right antecubital area, using aseptic technique. rs5 Blood collected. Flushed with 10 mL NS. 15:12 US Transvaginal Ob In Process Unspecified. EDMS 17:08 Provided Education on: discharge instructions . rs5 17:10 IV discontinued, intact, bleeding controlled, No redness/swelling at site. Pressure rs5 dressing applied. Administered Medications: 15:10 Drug: NS 0.9% IV 1000 ml IV at 1 bolus Per protocol; to be given as a bolus over 60 rs5 minutes Route: IV; Rate: 1 bolus; Site: right antecubital; 16:07 Follow up: Response: No adverse reaction; IV Status: Completed infusion; IV Intake: rs5 999ml 15:10 Drug: Ondansetron IVP 4 mg IVP once; over 2 minutes Route: IVP; Site: right antecubital;rs5 15:30 Follow up: Response: No adverse reaction; Nausea is decreased rs5 15:10 Drug: Acetaminophen PO 650 mg PO once Route: PO; rs5 16:12 Follow up: Response: No adverse reaction; Pain is decreased rs5 16:10 Drug: Rocephin IV 1 grams IV at calculated rate once; Given slow IV push per pharmacy rs5 instructions Route: IV; Rate: calculated rate; Site: right antecubital; 16:40 Follow up: Response: No adverse reaction; IV Status: Completed infusion; IV Intake: [id number] Medication: 15:30 VIS not applicable for this client. rs5 Intake: 16:07 IV: 999ml; Total: 999ml. rs5 16:40 IV: 50ml; Total: 1049ml. rs5 Outcome: 16:44 Discharge ordered by . sb4 17:10 Discharged to home ambulatory, rs5 17:10 Condition: stable 17:10 Discharge instructions given to patient, family, Instructed on discharge instructions, follow up and referral plans. Demonstrated understanding of instructions, follow-up care, 17:15 Patient left the ED. rs5 Signatures: Dispatcher [employer] Sirisha Bernstein RN RN iw Brown, Sophia, PAJulia PAJulia sb4 Tarik Rodriguez RN RN rs5 Vanessa Hathaway ra3
[2024-05-15 17:38] VITALS: TEMP 98.1
[2024-05-15 17:50] VITALS: BP 127/81; O2SAT 99
== END 2024-05-15 17:15 | disposition home or self-care (01) ==
LOC: ER 13:59
DX: O23.41 Unspecified infection of urinary tract in pregnancy, first trimester (principal); N39.0 Urinary tract infection, site not specified; Z3A.11 11 weeks gestation of pregnancy
CPT/HCPCS: 96365; 96361; 87088; 85025; 81001; 87086; 80048; 36415; 81025; 84702; 76817; 96375; 99284; J2405; J7030; J0696